=== PATIENT | male | born 1940 | race Caucasian/White ===

== ENCOUNTER 2017-03-17 09:28 | Outpatient (CLI) | payer MEDICARE, OTHER ==
[2017-03-17] MEDS ORDERED: BARIUM SULFATE 135 ML BOTTLE PO ONE (10:00)
[2017-03-17] MEDS ORDERED: BARIUM SULFATE 176 GM BOTTLE PO ONE (10:00)
--- NOTE | 2017-03-21 08:38 | XRAY Report ---
ESOPHAGRAM: 03/17/2017 CLINICAL INDICATION: Dysphagia, history of chewing tobacco usage. FINDINGS: Esophagram was performed in the upright and prone positions. The esophagus is normal in c aliber. 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 Otherwise, the hypopharynx appears unremarkable. Tertiary contractions are seen. There is a small sliding hiat al hernia, which produced reflux during the course of the study. A 13 mm barium pill passed freely t hrough the esophagus and into the stomach. No esophageal ulceration or mass lesion is identified. IMPRESSION: 1. 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 2. HIATAL HERNIA, PRODUCING REFLUX. 3. PRESBYESOPHAGUS. FLUOROSCOPY TIME: 2 minutes 3 seconds; 19 spot images obtained. JOB #: [id number] EXT JOB #:[id number]
== END 2017-03-17 09:29 | disposition home or self-care (01) ==
LOC: DI 09:28
PROVIDERS: ATTEND Registered Nurse
DX: K22.5 Diverticulum of esophagus, acquired (principal); K44.9 Diaphragmatic hernia without obstruction or gangrene; K21.9 Gastro-esophageal reflux disease without esophagitis; K22.8 Other specified diseases of esophagus; F17.220 Nicotine dependence, chewing tobacco, uncomplicated
CPT/HCPCS: 74220; A9270

== ENCOUNTER 2017-08-09 11:00 | Outpatient (CLI) | payer MEDICARE, OTHER ==
[2017-08-09 11:19] LABS: BASOPHILS % (AUTO) 0.7 %; EOSINOPHILS # (AUTO) 0.2 10^3/uL (0.0-0.7); EOSINOPHILS % (AUTO) 4.5 %; HCT - HEMATOCRIT 46.3 % (42.0-52.0); HGB - HEMOGLOBIN 15.9 g/dL (14.0-18.0); LYMPHOCYTES # (AUTO) 1.5 10^3/uL (1.5-3.5); MEAN CORPUSCULAR HEMOGLOBIN 30.7 pg (27.0-31.0); MEAN CORPUSCULAR HGB CONC 34.4 g/dL (32.0-36.0); MEAN CORPUSCULAR VOLUME 89.2 fL (80.0-94.0); MEAN PLATELET VOLUME 8.3 fL (7.4-11.4); MONOCYTES # (AUTO) 0.4 10^3/uL (0.0-1.0); MONOCYTES % (AUTO) 8.6 %; NEUTROPHILS % (AUTO) 58.2 %; NUCLEATED RED BLOOD CELLS AUTO 0.1 /100WBC; RED CELL DISTRIBUTION WIDTH 13.1 % (12.0-15.0); UNCORRECTED WHITE BLOOD COUNT 5.2 x10^3/uL; WHITE BLOOD COUNT 5.2 x10^3/uL (4.8-10.8)
[2017-08-09 11:35] LABS: ALBUMIN/GLOBULIN RATIO 1.5 (1.0-2.2); BILIRUBIN,TOTAL 0.6 mg/dL (0.2-1.0); CALCIUM 9.2 mg/dL (8.5-10.3); POTASSIUM 4.1 mmol/L (3.5-5.0); TOTAL PROTEIN 7.7 g/dL (6.7-8.2)
== END 2017-08-09 11:01 | disposition home or self-care (01) ==
LOC: LAB 11:00
PROVIDERS: ATTEND Nurse Practitioner Family
DX: K22.5 Diverticulum of esophagus, acquired (principal)
CPT/HCPCS: 36415; 80053; 85025

== ENCOUNTER 2018-09-23 17:43 | Outpatient (CLI) | payer MEDICARE, OTHER ==
--- NOTE | 2018-09-25 01:19 | Ultrasound Report ---
Reason: CHEST WALL PAIN,SWELLING OF LOWER LEG Procedure Date: 09/23/2018 Accession Number: [id number] / [id number] Procedure: US - Duplex Ext Veins Left CPT Code: FULL RESULT: EXAM: LEFT LOWER EXTREMITY VENOUS ULTRASOUND EXAM DATE: 09/23/2018 07:14 PM. CLINICAL HISTORY: CHEST WALL PAIN,SWELLING OF LOWER LEG. Left lower extremity swelling. COMPARISON: None. TECHNIQUE: Real-time sonographic vascular imaging was performed by the manuscript editor through the lower extremity utilizing both color-flow and Doppler spectral analysis. Multiple advertising representative static images were saved for review. FINDINGS: Common Femoral Vein (CFV): Normal. CFV-GSV Junction: Normal. Profunda Femoral Vein (PFV): Normal. Femoral Vein (FV) Prox: Normal. Femoral Vein (FV) Mid: Normal. Femoral Vein (FV) Dist: Normal. Popliteal Vein: Normal. Posterior Tibial Veins: Normal. Peroneal Veins: Normal. Other: Exam mildly limited by small vessels and slow flow. IMPRESSION: No evidence for deep venous thrombosis. RADIA
--- NOTE | 2018-09-25 01:23 | XRAY Report ---
Reason: CHEST WALL PAIN,SWELLING OF LOWER LEG Procedure Date: 09/23/2018 Accession Number: [id number] / [id number] Procedure: XR - Ribs w/PA Chest RT CPT Code: FULL RESULT: EXAM: RIGHT RIB RADIOGRAPHY EXAM DATE: 09/23/2018 06:02 PM. CLINICAL HISTORY: CHEST WALL PAIN,SWELLING OF LOWER LEG. COMPARISON: SHOULDER 3 VIEW RT 03/18/2016 1:35 PM ESOPHAGRAM 03/17/2017 10:22 AM. TECHNIQUE: 1 view of the chest and 2 views of the ribs. FINDINGS: Normal heart size. Right midlung band like opacity extending from the hilum, could be focal atelectasis, or scar. Malignant process/mass seems less likely but not excluded. No pleural effusion or pneumothorax. Mild elevation right hemidiaphragm. No acute rib fracture is seen. IMPRESSION: 1. No acute rib fracture is seen. 2. ight midlung band like opacity extending from the hilum, could be focal atelectasis, or scar. Malignant process/mass seems less likely but not excluded. Follow-up chest x-ray is recommended to reevaluate. RADIA
== END 2018-09-23 17:44 | disposition home or self-care (01) ==
LOC: DI 17:43
PROVIDERS: ATTEND Registered Nurse
DX: R07.89 Other chest pain (principal); R22.42 Localized swelling, mass and lump, left lower limb

== ENCOUNTER 2018-09-27 15:14 | Outpatient (CLI) | payer MEDICARE, OTHER ==
--- NOTE | 2018-09-28 05:31 | CT Report ---
Reason: OTHER CHEST PAIN Procedure Date: 09/27/2018 Accession Number: [id number] / [id number] Procedure: CT - Chest W/O CPT Code: FULL RESULT: EXAM: CT CHEST EXAM DATE: 09/27/2018 03:32 PM. CLINICAL HISTORY: Chest wall pain. COMPARISONS: RIBS W/PA CHEST RT 09/23/2018 5:52 PM. TECHNIQUE: Routine helical CT imaging was performed through the chest. IV contrast: None. Reconstructions: Coronal and sagittal. In accordance with CT protocol optimization, one or more of the following dose reduction techniques were utilized for this exam: automated exposure control, adjustment of mA and/or KV based on patient size, or use of iterative reconstructive technique. FINDINGS: Lungs and Pleura: Linear right midlung field scarring is noted, with slight associated pleural retraction. There is also a small area of posteromedially located right upper lobe scarring. Central Airways: Visualized central airways are without suspicious filling defects. Chest Wall: No significant abnormality. Thyroid: No significant abnormality. Mediastinum: No significant abnormality. Heart: Normal in size. No significant pericardial effusion. Severe coronary vascular calcifications. Aorta: Normal caliber. Upper Abdomen: Suspect moderate hepatic steatosis. Bones: No suspicious bony lesions evident. However, bones are at least moderately osteopenic. This reduces exam sensitivity and specificity for detection of subtle bony lesions and/or fractures. There is moderate multilevel degenerative change within the spine. No displaced rib fracture noted. IMPRESSION: 1. No acute chest wall abnormality demonstrated. 2. Linear bandlike scarring within the right midlung field corresponding with the prior chest x-ray noted finding along the minor fissure. Subsegmental posteromedial right upper lobe scarring as well. 3. Severe coronary vascular calcifications. RADIA
== END 2018-09-27 15:15 | disposition home or self-care (01) ==
LOC: DI 15:14
PROVIDERS: ATTEND Registered Nurse
DX: R07.89 Other chest pain (principal); I25.10 Atherosclerotic heart disease of native coronary artery without angina pectoris
CPT/HCPCS: 71250

== ENCOUNTER 2019-01-16 14:39 | Outpatient (CLI) | payer MEDICARE, OTHER ==
--- NOTE | 2019-01-16 16:43 | CT Report ---
Reason: SYNCOPE AND COLLAPSE Procedure Date: 01/16/2019 Accession Number: [id number] / [id number] Procedure: CT - HEAD WO CPT Code: FULL RESULT: EXAM: CT HEAD EXAM DATE: 01/16/2019 02:57 PM. CLINICAL HISTORY: SYNCOPE AND COLLAPSE. COMPARISON: None. TECHNIQUE: Multiaxial CT images were obtained from the foramen magnum to the vertex. Reformats: Sagittal and coronal. IV contrast: None. In accordance with CT protocol optimization, one or more of the following dose reduction techniques were utilized for this exam: automated exposure control, adjustment of mA and/or KV based on patient size, or use of iterative reconstructive technique. FINDINGS: Parenchyma: No intraparenchymal hemorrhage. No evidence of mass, midline shift, or CT findings of infarction. Pozo-white differentiation is distinct. Extraaxial Spaces: Normal for age. No subdural or epidural collections identified. Ventricles: Normal in size and position. Sinuses and Orbits: There is mucosal thickening involving both maxillary sinuses, both frontal sinuses and the ethmoid air cells. Bones: No evidence of fracture or calvarial defect. Other: There is atherosclerosis of the internal carotid arteries. IMPRESSION: Mild to moderate mucosal thickening of the paranasal sinuses. Atherosclerosis of the internal carotid and vertebral arteries. No evidence for an intracranial hemorrhage or mass-effect. RADIA
== END 2019-01-16 14:40 | disposition home or self-care (01) ==
LOC: DI 14:39
PROVIDERS: ATTEND Nurse Practitioner Family
DX: I65.23 Occlusion and stenosis of bilateral carotid arteries (principal); I67.2 Cerebral atherosclerosis
CPT/HCPCS: 70450

== ENCOUNTER 2019-01-17 13:08 | Outpatient (CLI) | payer MEDICARE, OTHER ==
--- NOTE | 2019-01-18 08:55 | Ultrasound Report ---
Reason: SYNCOPE AND COLLAPSE Procedure Date: 01/17/2019 Accession Number: [id number] / [id number] Procedure: US - Carotid Doppler Complete CPT Code: FULL RESULT: EXAM: BILATERAL CAROTID AND VERTEBRAL ARTERY DUPLEX DOPPLER ULTRASOUND: EXAM DATE: 01/17/2019 02:15 PM CLINICAL HISTORY: SYNCOPE AND COLLAPSE. COMPARISON: None. TECHNIQUE: Grayscale imaging, color Doppler, and duplex spectral Doppler were used to evaluate the carotid and vertebral arteries bilaterally. Static images were obtained. FINDINGS: Moderate plaque right carotid bulb. Minor plaque left carotid bulb. Normal antegrade flow is present in bilateral vertebral arteries. VELOCITIES (cm/sec): Right CCA mid: PSV 99 cm/sec CCA dist: PSV 88 cm/sec ICA prox: PSV 60 cm/sec, EDV 26 cm/sec ICA mid: PSV 45 cm/sec, EDV 20 cm/sec ICA dist: PSV 62 cm/sec, EDV 28 cm/sec ECA: PSV 99 cm/sec Vert: PSV 42 cm/sec ICA/CCA: 0.62 Left CCA mid: PSV 82 cm/sec CCA dist: PSV 78 cm/sec ICA prox: PSV 60 cm/sec, EDV 25 cm/sec ICA mid: PSV 66 cm/sec, EDV 33 cm/sec ICA dist: PSV 57 cm/sec, EDV 30 cm/sec ECA: PSV 78 cm/sec Vert: PSV 38 cm/sec ICA/CCA: 0.80 ICA diameter stenosis: Right: <50% by velocity and <70% by NASCET criteria. Left: <50% by velocity and <70% by NASCET criteria. IMPRESSION: 1. Right greater than left carotid bulb plaquing. 2. In the right carotid artery there are no elevated carotid artery velocities to suggest hemodynamically significant stenosis. 3. In the left carotid artery there are no elevated carotid artery velocities to suggest hemodynamically significant stenosis. 4. Normal antegrade flow is present in bilateral vertebral arteries. General Recommendations: Stenosis =50% ICA - Follow-up ultrasound 6-12 months Stenosis <50% ICA - High Risk Patient with plaque - Follow-up ultrasound 1-2 years Normal Study but High Risk Patient - Follow-up ultrasound 3-5 years Management recommendations and diagnostic criteria are based on current IAC endorsed standards in Carotid Artery Stenosis: Grayscale and Doppler Ultrasound Diagnosis. Validated velocity measurements with angiographic measurements and velocity criteria are extrapolated from diameter data as defined by the Society of Radiologists in Ultrasound Consensus Conference Radiology 2003; 229;340-346. RADIA
== END 2019-01-17 13:09 | disposition home or self-care (01) ==
LOC: DI 13:08
PROVIDERS: ATTEND Nurse Practitioner Family
DX: I65.23 Occlusion and stenosis of bilateral carotid arteries (principal); R55 Syncope and collapse
CPT/HCPCS: 93880

== ENCOUNTER 2019-11-15 18:16 | Outpatient (CLI) | payer MEDICARE, OTHER | END 2019-11-15 18:17 | disposition home or self-care (01) | LOC: COV 18:16 | PROVIDERS: ATTEND Family Medicine | DX: R05 Cough (principal) ==

== ENCOUNTER 2019-12-12 20:19 | Emergency (ER) | payer MEDICARE, OTHER ==
--- NOTE | 2019-12-12 20:46 | ED Physician Documentation ---
History of Present Illness - Stated complaint Stated Complaint: PASSING OUT - Chief complaint Chief Complaint: Neuro - Additonal information Additional information: This is a 79-year-old male with a history of a hiatal hernia, who resents with episode of presyncope. 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 He did not actually lose consciousness. He did not fall or hit his head. He denies headache, chest pain, shortness of breath, or abdominal hayley n. After the event he was able to move and stack wood, and he felt fine. He went about his day is normal, then he called his primary care provider who recommended that he be seen in the emergency department. He denies any history of cardiac events, he states he had a similar episode of presyncope in the past which had a reportedly unrevealing work-up. Review of Systems Constitutional: denies: Fever Eyes: denies: Loss of vision Cardiac: denies: Chest pain / pressure Respiratory: denies: Dyspnea GI: denies: Abdominal Pain : denies: Dysuria Skin: denies: Rash Neurologic: denies: Focal weakness PD PAST MEDICAL HISTORY - Past Medical History Cardiovascular: High cholesterol - Past Surgical History Past Surgical History: Yes - Present Medications Home Medications: Ambulatory Orders Medication Instructions Recorded Confirmed No Known Home Medications 01/25/15 01/25/15 - Allergies Allergies/Adverse Reactions: Allergies Allergy/AdvReac Type Severity Reaction Status Date / Time No Known Drug Allergies Allergy Verified 12/12/19 20:26 - Living Situation Living Arrangement: reports: At home - Social History Does the pt smoke?: No Smoking Status: Never smoker Does the pt drink ETOH?: No Does the pt have substance abuse?: No - Immunizations Immunizations are current?: Yes - POLST Patient has POLST: No PD ED PE NORMAL - Vitals Vital signs reviewed: Yes - General General: Alert and oriented X 3, No acute distress - HEENT HEENT: PERRL - Neck Neck: Supple, no meningeal sign - Cardiac Cardiac: RRR, No murmur - Respiratory Respiratory: Clear bilaterally - Abdomen Abdomen: Normal bowel sounds, Soft, Non tender, Non distended - Derm Derm: Warm and dry - Extremities Extremities: No deformity - Neuro Neuro: Alert and oriented X 3, 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 No abnormal T wave inversions. QTc 442.) - Labs Labs: Laboratory Tests 12/12/19 12/12/19 12/12/19 20:48 20:48 20:48 WBC 6.2 RBC 4.91 Hgb 15.2 Hct 45.1 MCV 91.9 MCH 31.0 MCHC 33.7 RDW 12.9 Plt Count 181 MPV 9.7 Neut # (Auto) 4.3 Lymph # (Auto) 1.1 L [place] # (Auto) 0.5 Eos # (Auto) 0.2 Baso # (Auto) 0.1 Absolute Nucleated RBC 0.00 Nucleated RBC % 0.0 Sodium 139 Potassium 3.8 Chloride 108 Carbon Dioxide 22 Anion Gap 9.0 BUN 15 Creatinine 0.7 Estimated GFR (MDRD) 109 Glucose 93 Calcium 8.9 Total Bilirubin 0.8 AST 29 ALT 37 Alkaline Phosphatase 54 Troponin I High Sens 9.9 B-Natriuretic Peptide Total Protein 7.4 Albumin 4.6 Globulin 2.8 Albumin/Globulin Ratio 1.6 Lipase 26 12/12/19 20:48 WBC RBC Hgb Hct MCV MCH MCHC RDW Plt Count MPV Neut # (Auto) Lymph # (Auto) [place] # (Auto) Eos # (Auto) Baso # (Auto) Absolute Nucleated RBC Nucleated RBC % Sodium Potassium Chloride Carbon Dioxide Anion Gap BUN Creatinine Estimated GFR (MDRD) Glucose Calcium Total Bilirubin AST ALT Alkaline Phosphatase Troponin I High Sens B-Natriuretic Peptide 46 Total Protein Albumin Globulin Albumin/Globulin Ratio Lipase - Rads (name of study) CXR Radiology: Other (No acute findings) PD MEDICAL DECISION MAKING - ED course Complexity details: considered differential (Dehydration, vasovagal episode, dysrhythmia, ACS, electrolyte abnormality, anemia) ED course: Patient is very well-appearing on arrival. He is asymptomatic. He had an episode of presyncope that was not associated with any concerning symptoms, he had no chest pain, no shortness of breath, no palpitations, and he felt fine afterwards. His EKG here is unremarkable, and his labs are unrevealing with no signs of anemia, electrolyte disturbance, and his high-sensitivity troponin is negative. His BNP is also unremarkable, and his chest x-ray shows no acute abnormality. His blood pressure is unremarkable, he does not appear obviously dehydrated. He is neurologically intact with no deficits. He has no leg swelling, no shortness of breath, no chest pain, no tachycardia or hypoxia, no signs of pulmonary embolism. On repeat examination patient is well-appearing, continues to have a benign examination and unremarkable vital signs. I reviewed all results with him, and explained that given his reassuring work-up today think that he is safe for cl ose outpatient follow-up. I did review return precautions with him and he will return if he has any new or worsening symptoms. I also reviewed syncope precautions. He was discharged in good condition. Departure - Departure Disposition: 01 Home, Self Care Clinical Impression: Near syncope Condition: Good Instructions: ED Near Syncope Unkn Follow-Up: Jelly Harden ARNP [Primary Care Provider] - Comments: You were seen today for an episode of almost passing out. Your labs and chest x-ray and EKG are reassuring at this time, I do not see a obvious emergent cause of your symptoms. If you are having chest pain, passing out, difficulty breathing, significant swelling in your legs, or other concerning symptoms, please return to the emergency department. Make sure you are hydrating adequately, and get plenty of rest. Discharge Date/Time: 12/12/19 21:55
[2019-12-12 20:56] LABS: BASOPHILS # (AUTO) 0.1 10^3/uL (0.0-0.1); BASOPHILS % (AUTO) 0.8 %; EOSINOPHILS # (AUTO) 0.2 10^3/uL (0.0-0.7); EOSINOPHILS % (AUTO) 3.4 %; HGB - HEMOGLOBIN 15.2 g/dL (14.0-18.0); LYMPHOCYTES # (AUTO) 1.1 10^3/uL (1.5-3.5); MEAN CORPUSCULAR HGB CONC 33.7 g/dL (32.0-36.0); MEAN CORPUSCULAR VOLUME 91.9 fL (80.0-94.0); MEAN PLATELET VOLUME 9.7 fL (7.4-11.4); MONOCYTES # (AUTO) 0.5 10^3/uL (0.0-1.0); MONOCYTES % (AUTO) 8.7 %; NEUTROPHILS # (AUTO) 4.3 10^3/uL (1.5-6.6); NEUTROPHILS % (AUTO) 68.6 %; PLT - PLATELET COUNT 181 10^3/uL (130-450); RED BLOOD COUNT 4.91 10^6/uL (4.70-6.10); RED CELL DISTRIBUTION WIDTH 12.9 % (12.0-15.0); WHITE BLOOD COUNT 6.2 x10^3/uL (4.8-10.8)
[2019-12-12 21:10] LABS: ALBUMIN 4.6 g/dL (3.2-5.5); ALBUMIN/GLOBULIN RATIO 1.6 (1.0-2.2); BILIRUBIN,TOTAL 0.8 mg/dL (0.2-1.0); CALCIUM 8.9 mg/dL (8.5-10.3); CREATININE 0.7 mg/dL (0.6-1.2); TOTAL PROTEIN 7.4 g/dL (6.7-8.2)
--- NOTE | 2019-12-12 21:10 | XRAY Report ---
Reason: Chest Pain Procedure Date: 12/12/2019 Accession Number: [id number] / [id number] Procedure: XR - Chest 1 View X-Ray CPT Code: 50682 Final Report FULL RESULT: EXAM: CHEST RADIOGRAPHY EXAM DATE: 12/12/2019 08:59 PM. CLINICAL HISTORY: Chest Pain. COMPARISON: RIBS W/PA CHEST RT 09/23/2018 5:[address] W/O 09/27/2018 3:26 PM. TECHNIQUE: 1 view. FINDINGS: Lungs/Pleura: Right midlung linear atelectasis or scarring again noted. No consolidation, airspace disease, pleural effusion or pneumothorax. Mediastinum: Within exam limitations, the cardiomediastinal contour is normal. IMPRESSION: No acute findings are seen. RADIA
[2019-12-12 21:56] VITALS: BP 134/78
== END 2019-12-12 21:55 | disposition home or self-care (01) ==
LOC: ED 20:19
DX: R55 Syncope and collapse (principal)
CPT/HCPCS: 36415; 71045; 80053; 83690; 83880; 84484; 85025; 93005; 99283; 99284

== ENCOUNTER 2022-09-23 14:07 | Outpatient (CLI) | payer MEDICARE, OTHER ==
--- NOTE | 2022-09-23 14:52 | XRAY Report ---
PROCEDURE: Hip w/Pelvis 2-3V LT INDICATIONS: PAIN OF LEFT HIP JOINT TECHNIQUE: AP pelvis with lateral view(s) of the left hip(s). COMPARISON: None. FINDINGS: Bones: No fractures or dislocations. Pelvic ring appears intact. No suspicious bony lesions. Angela re arthritic changes are present within the left hip including prominent subchondral sclerosis and sm all area periarticular lucency. Reticular osteophyte is present. Right hip arthroplasty is present. H ardware is intact without evidence of hardware fracture or periprosthetic lucency to suggest loosenin g. Soft tissues: The visualized bowel gas pattern is normal. No suspicious soft tissue calcifications. 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 Areas of periarticular lucency are suggestive of subcho ndral cyst. However, erosions cannot be definitively excluded. Reviewed by: Janee Castañeda MD on 09/23/2022 2:50 PM PST Approved by: Janee Castañeda MD on 09/23/2022 2:50 PM PST Station ID: [id number]
== END 2022-09-23 14:08 | disposition home or self-care (01) ==
LOC: DI.S 14:07
PROVIDERS: ATTEND Nurse Practitioner Family
DX: M16.12 Unilateral primary osteoarthritis, left hip (principal)

== ENCOUNTER 2023-07-28 00:32 | Outpatient (CLI) | payer MEDICARE | END 2023-07-28 00:33 | disposition critical access hospital (66) | LOC: EMS 00:32 | DX: R42 Dizziness and giddiness (principal); R41.3 Other amnesia | CPT/HCPCS: A0425; A0429 ==

== ENCOUNTER 2023-07-28 01:10 | Emergency (ER) | payer MEDICARE, OTHER ==
[2023-07-28] MEDS ORDERED: SODIUM CHLORIDE 0.9% 1,000 ML IV STA (01:16)
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
[2023-07-28 01:39] LABS: BASOPHILS % (AUTO) 1.1 %; EOSINOPHILS # (AUTO) 0.2 10^3/uL (0.0-0.7); EOSINOPHILS % (AUTO) 6.5 %; HCT - HEMATOCRIT 39.1 % (42.0-52.0); HGB - HEMOGLOBIN 12.8 g/dL (14.0-18.0); LYMPHOCYTES % (AUTO) 28.2 %; MEAN CORPUSCULAR HEMOGLOBIN 30.3 pg (27.0-31.0); MEAN CORPUSCULAR HGB CONC 32.7 g/dL (32.0-36.0); MEAN CORPUSCULAR VOLUME 92.7 fL (80.0-94.0); MEAN PLATELET VOLUME 9.1 fL (7.4-11.4); MONOCYTES # (AUTO) 0.4 10^3/uL (0.0-1.0); MONOCYTES % (AUTO) 11.4 %; NEUTROPHILS % (AUTO) 52.8 %; PLT - PLATELET COUNT 180 10^3/uL (130-450); RED BLOOD COUNT 4.22 10^6/uL (4.70-6.10); RED CELL DISTRIBUTION WIDTH 13.2 % (12.0-15.0); WHITE BLOOD COUNT 3.7 x10^3/uL (4.8-10.8)
[2023-07-28 02:57] LABS: ALBUMIN 4.2 g/dL (3.2-5.5); ALBUMIN/GLOBULIN RATIO 1.8 (1.0-2.2); BILIRUBIN,TOTAL 0.3 mg/dL (0.2-1.0); CREATININE 0.7 mg/dL (0.6-1.3); POTASSIUM 3.8 mmol/L (3.5-4.5); TOTAL PROTEIN 6.5 g/dL (6.4-8.9)
[2023-07-28 05:16] VITALS: O2SAT 99
[2023-07-28 05:45] VITALS: BP 140/90
[2023-07-28] MEDS ORDERED: iohexoL-300 100 ML VIAL IVP ONE (05:45)
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
== END 2023-07-28 05:35 | disposition home or self-care (01) ==
LOC: EDUNIT# → ED 01:10
DX: G45.9 Transient cerebral ischemic attack, unspecified (principal)
CPT/HCPCS: 36415; 70450; 70496; 70498; 80053; 83690; 85025; 93005; 96360; 99284; Q9967

== ENCOUNTER 2024-06-14 17:47 | Observation (INO) ==
[2024-06-14] MEDS ORDERED: iohexoL-300 100 ML VIAL ONE (18:11)
[2024-06-14 18:17] LABS: BASOPHILS % (AUTO) 0.7 %; EOSINOPHILS # (AUTO) 0.2 10^3/uL (0.0-0.7); EOSINOPHILS % (AUTO) 2.5 %; HCT - HEMATOCRIT 43.4 % (42.0-52.0); HGB - HEMOGLOBIN 14.1 g/dL (14.0-18.0); LYMPHOCYTES # (AUTO) 1.1 10^3/uL (1.5-3.5); MEAN CORPUSCULAR HEMOGLOBIN 30.7 pg (27.0-31.0); MEAN CORPUSCULAR HGB CONC 32.5 g/dL (32.0-36.0); MEAN CORPUSCULAR VOLUME 94.3 fL (80.0-94.0); MEAN PLATELET VOLUME 9.1 fL (7.4-11.4); MONOCYTES # (AUTO) 0.4 10^3/uL (0.0-1.0); NEUTROPHILS # (AUTO) 4.2 10^3/uL (1.5-6.6); NEUTROPHILS % (AUTO) 71.5 %; PLT - PLATELET COUNT 212 10^3/uL (130-450); RED CELL DISTRIBUTION WIDTH 12.6 % (12.0-15.0); WHITE BLOOD COUNT 5.9 x10^3/uL (4.8-10.8)
[2024-06-14 18:31] LABS: ALBUMIN 4.7 g/dL (3.2-5.5); ALBUMIN/GLOBULIN RATIO 1.7 (1.0-2.2); BILIRUBIN,TOTAL 0.6 mg/dL (0.2-1.0); CALCIUM 9.6 mg/dL (8.5-10.3); CREATININE 0.8 mg/dL (0.6-1.3); POTASSIUM 3.5 mmol/L (3.5-4.5); TOTAL PROTEIN 7.4 g/dL (6.4-8.9)
[2024-06-14 18:34] LABS: BILIRUBIN,URINE NEGATIVE (NEGATIVE); GLUCOSE, URINE (UA) NEGATIVE (NEGATIVE); KETONES,URINE (UA) NEGATIVE (NEGATIVE); LEUKOCYTE ESTERASE, URINE NEGATIVE (NEGATIVE); NITRITE,URINE NEGATIVE (NEGATIVE); OCCULT BLOOD,URINE NEGATIVE (NEGATIVE); PROTEIN,URINE NEGATIVE (NEGATIVE); UROBILINOGEN,URINE 0.2 (NORMAL) E.U./dL (NORMAL)
[2024-06-14 18:36] LABS: CLARITY,URINE CLEAR (CLEAR)
[2024-06-14] MEDS: iohexoL-300 100 ML VIAL IVP ONE (19:31)
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
--- NOTE | 2024-06-14 19:49 | CT Report ---
PROCEDURE: CT Cervical Spine WO INDICATIONS: GLF, syncope, head injurypt states increased dizziness over the last few days, syncopia l episode, loc, striking posterior head. known stenosed artery in neck (unsure of which) hx of triple bypass TECHNIQUE: Noncontrast 3 mm thick sections acquired from the skull base to the T4 level. Sagittal and coronal r eformats were then constructed. For radiation dose reduction, the following was used: automated exp osure control, adjustment of mA and/or kV according to patient size. COMPARISON: None. FINDINGS: Image quality: Excellent. Bones: No fractures or dislocations. Visualized superior ribs are intact. Grade 1 anterolisthesis of the bilateral C6. Moderate, multilevel degenerative disease and diffuse facet arthrosis. Soft tissues: Prevertebral soft tissues are normal in thickness. No paravertebral hematomas. No ap ical pneumothoraces. IMPRESSION: No acute, displaced fracture or traumatic subluxation. Reviewed by: Cedric Ware MD on 06/14/2024 7:47 PM PDT Approved by: Cedric Ware MD on 06/14/2024 7:47 PM PDT Station ID: [id number]
--- NOTE | 2024-06-14 19:50 | CT Report ---
PROCEDURE: CT Head WO INDICATIONS: GLF, head injurypt states increased dizziness over the last few days, syncopial episode , loc, striking posterior head. known stenosed artery in neck (unsure of which) hx of triple bypass TECHNIQUE: Noncontrast 4.5 mm thick angled axial sections acquired from the foramen magnum to the vertex. For r adiation dose reduction, the following was used: automated exposure control, adjustment of mA and/or kV according to patient size. COMPARISON: 07/28/2023 FINDINGS: Image quality: Excellent. CSF spaces: Basal cisterns are patent. No extra-axial fluid collections. Ventricles are normal in size and shape. Brain: No midline shift. No intracranial masses or hemorrhage. Pozo-white matter interface is norm al. Leukoaraiosis, commonly caused by chronic small vessel ischemic disease. Age-related volume loss . Skull and face: Calvarium and visualized facial bones are intact, without suspicious lesions. Poste rior scalp contusion without underlying fracture. Sinuses: Mild mucosal thickening of the maxillary sinuses, with bony expansion of the maxillary sinus [place]. IMPRESSION: No acute intracranial pathology. Posterior scalp contusion without underlying fracture. Acute on chronic maxillary sinusitis. Reviewed by: Cedric Ware MD on 06/14/2024 7:48 PM PDT Approved by: Cedric Ware MD on 06/14/2024 7:48 PM PDT Station ID: [id number]
--- NOTE | 2024-06-14 19:53 | CT Report ---
PROCEDURE: CT Angio Head/Neck INDICATIONS: dizziness, syncope, GLFpt states increased dizziness over the last few days, syncopial episode, loc, striking posterior head. known stenosed artery in neck (unsure of which) hx of triple b ypass TECHNIQUE: After the administration of intravenous contrast, 1 mm thick sections acquired from the aortic arch t hrough the [place] of [place]. 3-dimensional ofvhfmw-qyuehwlqh-vqvryahrbl (MIP) and/or volume renderin g reformats were acquired of the central intracranial vasculature and neck separately. For radiation dose reduction, the following was used: automated exposure control, adjustment of mA and/or kV acco rding to patient size. CONTRAST: 80ML [id number] COMPARISON: 07/28/2023 FINDINGS: Image quality: Diagnostic. HEAD CT: No significant change from same day head CT. HEAD CT ANGIOGRAPHY: Anterior circulation: Intracranial internal carotid arteries are normal in size and flow. The flow within the paired anterior cerebral arteries is normal and symmetric. The flow within the middle cer ebral arteries is normal and symmetric. The anterior communicating artery is seen on the left but di minutive on the right, stable from prior. No aneurysms are seen. Posterior circulation: Visualized portions of the vertebral arteries demonstrate normal caliber, and join to form a normal appearing basilar artery. Flow within the posterior cerebral arteries is norm al and symmetric. No aneurysms are seen. NECK CT ANGIOGRAPHY: Carotid system: The great vessels demonstrate a conventional anatomy as they arise from the aortic a rch. The origins of the common carotid arteries appear patent. The common carotid arteries demonstr ate normal caliber and courses. Stable less than 50% stenosis of the right internal carotid artery. L eft internal carotid artery is widely patent. Posterior circulation: The origins of the vertebral arteries both appear widely patent. The more hermosillo perior extracranial portions of both vertebral arteries also demonstrate normal courses and calibers. They join to form a normal appearing basilar artery. Soft tissues: Visualized neck soft tissues demonstrate no suspicious abnormalities. Small right pleu ral effusion. Bones: No suspicious bony lesions. Visualized cervical spine appears normally aligned. IMPRESSION: No significant intracranial arterial abnormality is seen. Stable less than 50% stenosis of the right internal carotid artery at the bulb. No significant abnormality is seen within the arteries of the neck. Stable diminutive appearance of t he right anterior communicating artery. The estimate of stenosis included in the report of the imaging study was calculated using the NASCET method Reviewed by: Cedric Ware MD on 06/14/2024 7:52 PM PDT Approved by: Cedric Ware MD on 06/14/2024 7:52 PM PDT Station ID: [id number]
[2024-06-14] MEDS: ACETAMINOPHEN 500 MG TABLET PO STA (20:07)
[2024-06-14] MEDS ORDERED: SODIUM CHLORIDE FLUSH 0.9% 10 ML SYRINGE IVP PRN (21:46)
[2024-06-14] MEDS ORDERED: ACETAMINOPHEN 325 MG TABLET PO PRN (21:46)
[2024-06-14] MEDS ORDERED: ONDANSETRON 4 MG/2 ML VIAL IVP PRN (21:46)
[2024-06-14] MEDS ORDERED: ATORVASTATIN 40 MG TABLET PO SCH (22:00)
[2024-06-14 22:07] LABS: BASOPHILS % (AUTO) 0.6 %; EOSINOPHILS # (AUTO) 0.1 10^3/uL (0.0-0.7); EOSINOPHILS % (AUTO) 2.4 %; HCT - HEMATOCRIT 42.5 % (42.0-52.0); HGB - HEMOGLOBIN 14.1 g/dL (14.0-18.0); LYMPHOCYTES % (AUTO) 19.2 %; MEAN CORPUSCULAR HEMOGLOBIN 30.9 pg (27.0-31.0); MEAN CORPUSCULAR HGB CONC 33.2 g/dL (32.0-36.0); MEAN PLATELET VOLUME 9.3 fL (7.4-11.4); MONOCYTES # (AUTO) 0.4 10^3/uL (0.0-1.0); MONOCYTES % (AUTO) 7.4 %; NEUTROPHILS # (AUTO) 3.8 10^3/uL (1.5-6.6); NEUTROPHILS % (AUTO) 70.2 %; PLT - PLATELET COUNT 192 10^3/uL (130-450); RED BLOOD COUNT 4.57 10^6/uL (4.70-6.10); RED CELL DISTRIBUTION WIDTH 12.7 % (12.0-15.0); WHITE BLOOD COUNT 5.4 x10^3/uL (4.8-10.8)
--- NOTE | 2024-06-14 22:08 | HISTORY & PHYSICAL EXAMINATION ---
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 Patient states if he needs resuscitation to try once but if he is not improving then to not do heroics and let him go back to his creator comfortably. Patient has hx of CAD s/p CABG x 3, 2 years ago at outside facitlity in a different state, last cardiac work up 9 mos age, lipids are elevated he only takes ASA and vitamins. no cp, no sob, no palpitations has been dizzy on and off for last 6 mos was told by a friend to drink more water so has been drinking more than usual, EKG shows first degree av block, SR and PVC, this was informed by ER team as I could not personally see his eKG at this time he has no allergies and no other complains, has passed out few times in last 6 mos. Review of Systems Status of ROS: 10 or more systems reviewed and unremarkable except as noted in history and below Constitutional Reports: Other [facility] Surgical History Surgical History History of throat surgery S/P triple vessel bypass Social History Social History Smoking Status: Never smoker Living arrangement: At home Relationship: Do you feel safe in your home environment?: Yes Suffered physical, verbal, emotional, or financial abuse?: No History of Abuse: No POLST Patient has POLST: Yes POLST Status: Full Code (IF does not get better then make him DNR does not want to in a vegetative state) Meds/Allgy Home Medications Ambulatory Orders Medication Instructions Recorded Confirmed aspirin 81 mg chewable tablet (St 81 mg PO DAILY 07/28/23 06/14/24 Bradley Aspirin) Allergies Allergies Allergy/AdvReac Type Severity Reaction Status Date / Time No Known Drug Allergies Allergy Verified 06/14/24 18:00 Prior Level of Functionality: Independent with ADL Exam Constitutional normal general appearance and no apparent distress HENMT normocephalic and oral mucous membranes normal Eyes PERRL and no scleral icterus Neck/C-Spine visual inspection normal Chest inspection of chest normal Respiratory normal respiratory effort and no wheezes Cardiovascular normal heart rate noted Gastrointestinal abdomen normal to inspection and abdomen soft to palpation Extremities normal to inspection Neurology 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 II-XII intact and no focal motor deficit noted Psychiatry mental status grossly normal and oriented x3 Skin skin color normal Conclusion/Plan Problem List (1) Syncope and collapse: Plan: Admit to telemetry for observation Cardiac telemetry ivf monitor electrolytes please check his ears in am will need 2 weeks of burglar alarm installer check echocardiogram in am Check troponin in am Carotid shows moderate disease CT ASA Start statin Conisder MRI of head if above work up is negative to rule out post cerebellar pathology will need outpateint close follow up Discussed in detail with patient Lab Results 06/14/24 18:11 06/14/24 18:11
--- NOTE | 2024-06-14 22:09 | HISTORY & PHYSICAL EXAMINATION ---
Review of Systems Status of ROS: 10 or more systems reviewed and unremarkable except as noted in history and below Constitutional Reports: Other [facility] Surgical History Surgical History History of throat surgery S/P triple vessel bypass Social History Social History Smoking Status: Never smoker Living arrangement: At home Relationship: Do you feel safe in your home environment?: Yes Suffered physical, verbal, emotional, or financial abuse?: No History of Abuse: No POLST Patient has POLST: Yes POLST Status: Full Code (IF does not get better then make him DNR does not want to in a vegetative state) Meds/Allgy Home Medications Ambulatory Orders Medication Instructions Recorded Confirmed aspirin 81 mg chewable tablet (St 81 mg PO DAILY 07/28/23 06/14/24 Bradley Aspirin) Allergies Allergies Allergy/AdvReac Type Severity Reaction Status Date / Time No Known Drug Allergies Allergy Verified 06/14/24 18:00 Exam Constitutional normal general appearance and no apparent distress HENMT normocephalic and oral mucous membranes normal Eyes PERRL and no scleral icterus Neck/C-Spine visual inspection normal Chest inspection of chest normal Respiratory normal respiratory effort and no wheezes Cardiovascular normal heart rate noted Gastrointestinal abdomen normal to inspection and abdomen soft to palpation Extremities normal to inspection Neurology algorithm design engineer II-XII intact and no focal motor deficit noted Psychiatry mental status grossly normal and oriented x3 Skin skin color normal Conclusion/Plan Problem List (1) Syncope and collapse: Plan: Admit to telemetry for observation Cardiac telemetry ivf monitor electrolytes please check his ears in am will need 2 weeks of awake overnight monitor check echocardiogram in am Check troponin in am Carotid shows moderate disease CT ASA Start statin Conisder MRI of head if above work up is negative to rule out post cerebellar pathology will need outpateint close follow up Discussed in detail with patient Lab Results 06/14/24 22:01 06/14/24 18:11
[2024-06-14 22:34] LABS: ALBUMIN 4.5 g/dL (3.2-5.5); ALBUMIN/GLOBULIN RATIO 1.8 (1.0-2.2); BILIRUBIN,TOTAL 0.7 mg/dL (0.2-1.0); CALCIUM 9.6 mg/dL (8.5-10.3); CREATININE 0.7 mg/dL (0.6-1.3); POTASSIUM 4.4 mmol/L (3.5-4.5)
[2024-06-15] MEDS: SODIUM CHLORIDE 0.9% 1,000 ML IV SCH (00:48)
[2024-06-15] MEDS: SODIUM CHLORIDE FLUSH 0.9% 10 ML SYRINGE IVP SCH (00:49)
[2024-06-15] MEDS: SODIUM CHLORIDE 0.9% 1,000 ML IV STA (02:36)
[2024-06-15] MEDS: ASPIRIN CHEW 81 MG TABLET PO SCH (08:05)
[2024-06-15] MEDS: NICOTINE 21 MG PATCH TOP SCH (11:26)
--- NOTE | 2024-06-15 12:12 | PHARMACY PROGRESS NOTE ---
Best Possible Medication History Admit Date and Time: 06/14/242145 Processed by: Pharmacy Medication History completed: Yes Patient Interview: Completed [facility] Statement: As the person ultimately responsible for medication therapy, providers are able to order a medication from an existing home medication list in [facility] via the "Reconcile Routine" prior to Confirmation of that medication by retail support specialist. Such practice is discouraged except when the physician, in their clinical judgment, deems that a medical need exists for a medication without regard to previous use.
--- NOTE | 2024-06-15 13:49 | Discharge Summary ---
"Discharge Summary Admit Date: 06/14/24 Discharge Date: 06/15/24 Discharging Provider: Yovanny Mansfield NP Primary Care Provider: Lisset Harden Code Status: Attempt Resuscitation DIAGNOSES Admission Diagnoses: Syncope and collapse Three-vessel CAD Status post CABG x 3 Dehydration Hyperlipidemia Discharge Diagnoses with Status of Each Condition: Syncope and collapseresolved Three-vessel CADchronic Status post CABG x 3history Dehydrationresolved Hyperlipidemiachronic HPI History of Present Illness: 83-year-old male PMH significant for remote history of three-vessel CABGPresented to the ER after an episode of syncope and collapse. He states that he normally gets a little dizzy when working, especially when bending over. 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 He did have 1 episode of dizziness, which led to a fall that he does not remember and he hit the back of his head. He came to the ER, and CT was negative for major trauma. He does have a laceration on the back of his head. He was placed in observation for syncope and collapse workup, which has been negative thus far. EKG showed no significant change, but telemetry overnight showed 1 episode of V. tach that was self-limiting and asymptomatic. Echo was obtained on 06/15/2024, but due to system issues we are unable to see the results of this. Discussion was had with the patient, and he agrees to discharge with rapid follow-up with PCP for results of this echo CONSULTS | PROCEDURES Procedures: EKGsinus rhythm with PVCs Troponin high-sensitivity 5.2 CT angiogram with no significant intracranial arterial abnormality, stable less than 50% stenosis of the right internal carotid at the bulb CT head no acute intracranial pathology, posterior scalp contusion without underlying fracture CT C-spine no acute fracture HOSPITAL COURSE Hospital Course: Patient was placed in observation overnight, was given IV fluids. He underwent echocardiogram which we have not seen the results of. CT head, CTA head and neck, CT C-spine all with no acute traumatic changes ALLERGIES Allergies Allergy/AdvReac Type Severity Reaction Status Date / Time No Known Drug Allergies Allergy Verified 06/14/24 18:00 MEDICATIONS Ambulatory Orders Medication Instructions Recorded Confirmed aspirin 81 mg chewable tablet (St 81 mg PO DAILY 07/28/23 06/15/24 Bradley Aspirin) atorvastatin 40 mg tablet 40 mg PO ONCE 30 days #30 tabs 06/15/24 multivitamin (Daily Value tablet) 1 tab PO DAILY 06/15/24 06/15/24 PHYSICAL EXAM AT DISCHARGE General Appearance: positive No acute distress and Alert Eyes Bilateral: positive Normal inspection and PERRL Neck: positive Nml inspection Respiratory: positive Chest non-tender Cardiovascular: positive Regular rate & rhythm and No murmur Peripheral Pulses: positive 2+ Abdomen: positive Non-tender Skin: positive Color nml and Laceration (cm) Extremities: positive Non-tender Neurologic/Psychiatric: positive Oriented x3 LABS 06/14/24 22:01 06/14/24 22:01 DIAGNOSTIC IMAGING Diagnostic Imaging Results: Final report reviewed Diagnostic Imaging Results Comments: CT head, CT neck, CTA head and neck all negative for acute abnormalities SEPSIS Current Stage of Sepsis: Ruled out FOLLOW UP Follow Up: With PCP TIME SPENT Time Spent in Discharge (Minutes): 25 Discharge Plan Discharge Patient Disposition: Home, Self Care Condition: Stable Medically Cleared Date:: 06/15/24 Prescriptions: New atorvastatin 40 mg Tablet 40 mg PO ONCE 30 Days Qty: 30 0RF Continued aspirin [[facility] Aspirin] 81 MG tablet,chewable 81 mg PO DAILY multivitamin [Daily Value] Tablet 1 tab PO DAILY Diet: Cardiac Health Concerns: You are a 83-year-old male with past medical history of heart surgery several years ago who came in after experiencing dizziness several times while working. Your workup so far has been negative, your CT head did not show any acute abnormalities. You did have 1 run of V. tach overnight, but this was small and it only happened once. We checked a echocardiogram, which is a ultrasound of your heart. We are unable to get the results from that at this time, so I would encourage you to seek follow-up with your primary care provider as soon as possible regarding this and possible heart monitor Plan of Treatment: Take medicines as prescribed Follow-up with PCP regarding echo results Print Language: [place] Patient Instructions: Dizziness Fainting Ch Stand Alone Forms: PCP List Follow-up Care: Jelly Harden ARNP [Primary Care Provider] -"
[2024-06-15 14:45] VITALS: O2SAT 96
== END 2024-06-15 14:30 | disposition home or self-care (01) ==
LOC: MS2 17:47 → ED 17:47 → MS2 23:03
PROVIDERS: ADMIT Internal Medicine; ATTEND Internal Medicine
DX: I47.20 Ventricular tachycardia, unspecified; W18.30XA Fall on same level, unspecified, initial encounter; I25.10 Atherosclerotic heart disease of native coronary artery without angina pectoris; R55 Syncope and collapse; S01.01XA Laceration without foreign body of scalp, initial encounter; E86.0 Dehydration; E78.5 Hyperlipidemia, unspecified; Z79.82 Long term (current) use of aspirin; S06.0XAA Concussion with loss of consciousness status unknown, initial encounter; Z95.1 Presence of aortocoronary bypass graft